=== PATIENT | male | born 1955 | race Two or more races ===

== ENCOUNTER 2020-12-28 10:03 | Day surgery (SDC) | payer OTHER ==
[~2020-12-28 10:03] MED LIST: ATACAND32 MG PO; TOPROL XL50 M1 PO
[2020-12-28] MEDS ORDERED: TYLENOL ARTHRI650 MG PO (17:10)
[2020-12-28] MEDS ORDERED: ULTRAM50 MG PO (17:10)
[2020-12-28] MEDS ORDERED: NEURONTIN300 MG PO (17:10)
[2020-12-28] MEDS ORDERED: MIRALAX17 GM PO (17:10)
== END 2020-12-28 21:59 | disposition home or self-care (01) ==
LOC: CIR.AMB 10:03
PROVIDERS: ATTEND Surgery
DX: K42.9 Umbilical hernia without obstruction or gangrene (principal); K40.91 Unilateral inguinal hernia, without obstruction or gangrene, recurrent; Z20.822 Contact with and (suspected) exposure to COVID-19